=== PATIENT | female | born 1960 | race Caucasian/White ===

== ENCOUNTER 2017-06-01 12:16 | Emergency (ER) | payer BC, OTHER ==
[~2017-06-01] VITALS: Ht 165.1 cm; Wt 49.9 kg
--- NOTE | ~2017-06-01 | HC ---
[facility] [place] [address] CONSULTATION Name: SHELBY ROSE Room #: DEP Yonathan#: [id number] Admission: 06/01/17 Attend Phys: Discharge: 06/01/17 Date of : 58 Report #: [id number] THIS REPORT FOR: //name// CC: Jamari Kc DATE OF SERVICE: 06/01/2017 ER CONSULTATION HISTORY OF PRESENT ILLNESS: This is a 56-year-old female well known to myself, who presents with irregular heartbeat, palpitations, lightheadedness. She was found to be in AFib, RVR with a rate initially at 140-150. She has had this intermittently by history with very short occurrences but never had it last this long. It started this morning a couple of hours ago. No chest pain associated with this. She has had prior echos and stress test in my office in the last couple of years. I do see her on the early basis. Her only medication is Cardizem 120 for cardiovascular purposes. She also takes Fosamax and Flexeril p.r.n. PAST MEDICAL HISTORY: Positive for the palpitations, PAF which has had minimal recurrence, osteoporosis, has had a partial hysterectomy and breast augmentation. FAMILY HISTORY: Parents are alive and elderly. They have had bypass and pacemakers placed, but nothing real premature. SOCIAL HISTORY: Very minimal alcohol use. No tobacco. 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 She is single, has a boyfriend and she has 2 children. LABORATORY DATA: Unremarkable. Potassium is 3.6. Her creatinine is normal. Troponin is negative. Hemodynamically, she is stable with blood pressure. H and H is 14 and 40. Chest x-ray shows minimal stranding in the right mid lung. PHYSICAL EXAMINATION: VITAL SIGNS: Currently, pulse is 80s, blood pressure 108/68, her sat is 99%. HEENT: Eyes reveal xanthelasmas. Pharynx is clear. NECK: Shows preserved upstrokes without JVD or bruits. LUNGS: Clear. CARDIOVASCULAR: Irregularly irregular, S1, S2. ABDOMEN: Soft. No HSM or abdominal bruit. EXTREMITIES: Reveal no edema. ____ pulses were intact. NEUROLOGIC: Nonfocal. SKIN: Warm and dry without xanthoma or ulcer. MUSCULOSKELETAL: No gross joint deformity. [facility] [address] [place] [address] CONSULTATION Name: SHELBY ROSE Room #: DEP Yonathan#: [id number] Admission: 06/01/17 Attend Phys: Discharge: 06/01/17 Date of : 58 Report #: [id number] ASSESSMENT: 1. Recurrent atrial fibrillation (markedly with rapid ventricular response, currently markedly improved with IV Lopressor, Cardizem and amiodarone p.o.). 2. Mild osteoporosis. RECOMMENDATIONS AND PLAN: The patient looks well. She is just apprehensive but she is circled by a lot of family. I would opt to discharge her. She does not want anticoagulation, her CLARY score would be 1, so certainly not indicated. I suspect this will be short lived and it looks like with the IV Lopressor, Cardizem and the p.o. amiodarone, she will attempt to convert. I do fully expect her to convert at home tonight. I have a followup scheduled for her. She will call the office in the morning. I will see here with echo Doppler and EKG tomorrow. She will call with any issues. Avoid caffeine and alcohol tonight. Certainly return to the Emergency Room as an option here, but I have not currently indicated for her to remain admit or to admit. This has been discussed with her and her boyfriend and some family members in detail. By: [id number] Fabian Christensen MD, FACC /nt
--- NOTE | ~2017-06-01 | EKG ---
[place] [address] [facility] [place] [address] ELECTROCARDIOGRAM REPORT Name: SHELBY ROSE [facility] [id number] Admission: 06/01/17 Attend Phys: Discharge: 06/01/17 Date of : 58 Report #: [id number] THIS REPORT FOR: //name// [facility] ED Test Date: 2017-06-01 Test Time: 12:26:14 Pat Name: SHELBY ROSE Department: Room: Gender: F [employer]redded [employer] Cigar [employer] Machine: CHANDNI : 1960 Requested By: Lucien Kc Order Number: [id number] MD: Henry Paige Measurements Intervals [place] Rate: 141 P: [place]: QRS: -60 QRSD: 78 T: 11 QT: 293 QTc: 449 Interpretive Statements Atrial fibrillation Left anterior fascicular block Borderline repol abnormality, diffuse leads No previous ECG available for comparison Electronically Signed On 06-02-2017 8:35:59 CDT by Henry Paige [email or web address] <ELECTRONICALLY SIGNED> By: Henry Paige MD, [facility] 06/02/17 0835 1226 25 Henry Paige MD, FACC /EPI
--- NOTE | ~2017-06-01 | EKG ---
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
[2017-06-01] MEDS ORDERED: CARDIZEM30 MG PO (12:26)
[2017-06-01] MEDS ORDERED: FOSAMAX 70 MG T70 MG PO (12:27)
[2017-06-01] MEDS ORDERED: [UNRECOGNIZED DRUG - OTHER] (12:28)
[2017-06-01] MEDS ORDERED: FLEXERIL PO (12:28)
[2017-06-01 12:47] LABS: ABSOLUTE NEUTROPHILS 5.4 thou/uL (1.4-8.2); BASOPHILS 0.5 % (0.0-2.0); EOSINOPHILS 0.8 % (0.0-3.0); LYMPHOCYTES 21.8 % (24.0-44.0); MCHC 34.9 g/dL (28.0-37.0); MONOCYTES 5.7 % (1.0-8.0); PLATELET COUNT 264 thou/uL (150-400); POLYS 71.2 % (36.0-66.0); RBC 4.65 mil/uL (4.20-5.00); RDW 13.7 % (10.5-14.5); WBC 7.5 thou/uL (4.0-11.0)
[2017-06-01 12:51] LABS: MANUAL DIFF NO
[2017-06-01 12:56] LABS: ANION GAP 10 mmol/L (7-16); BUN 11 mg/dL (7-18); CALCIUM 9.2 mg/dL (8.5-10.1); CHLORIDE 106 mmol/L (98-107); CO2 24 mmol/L (21-32); CREATININE 0.8 mg/dL (0.6-1.0); GLUCOSE 116 mg/dL (74-106); POTASSIUM 3.6 mmol/L (3.5-5.1); SODIUM 140 mmol/L (136-145)
[2017-06-01 13:05] LABS: TROPONIN-I < 0.04 ng/mL (<0.04-0.07)
[2017-06-01 14:27] VITALS: BP 124/79
== END 2017-06-01 14:27 | disposition home or self-care (01) ==
LOC: ER 12:16
PROVIDERS: Nurse Practitioner
DX: I48.91 Unspecified atrial fibrillation (principal); F10.99 Alcohol use, unspecified with unspecified alcohol-induced disorder; Z88.1 Allergy status to other antibiotic agents